=== PATIENT | male | born 1990 | race African-American/Black ===

== ENCOUNTER 2020-04-15 21:26 | Emergency (ER) | payer OTHER ==
[2020-04-15 21:31] VITALS: BP 129/65; PULSE 82; TEMP 99; BMI 26.5
[2020-04-15] MEDS ORDERED: AZITHROMYCIN 500 MG TABLET PO ONE (21:31)
--- NOTE | 2020-04-15 21:32 | PDOC ---
Rapid Medical Evaluation Time Seen by Provider: 04/15/20 21:29 Medical Evaluation: 04/15/20 21:30 Pt presents to the ER for STD testing Exam: Defer to provider Orders: urine Pt to proceed to the ER for evaluation Discharge Disposition - Diagnosis Concern about STD in male without diagnosis - Referrals - Patient Instructions - Post Discharge Activity
[2020-04-15] MEDS ORDERED: AZITHROMYCIN 250 MG TABLET ONE (21:54)
--- NOTE | 2020-04-15 22:01 | PDOC ---
History of Present Illness - General Chief Complaint: HIV Testing Stated Complaint: SICK Time Seen by Provider: 04/15/20 21:29 - History of Present Illness Initial Comments: 04/15/20 21:54 29-year-old male without comorbidities no allergies to medicine presents for STD testing he is asymptomatic. He states his girlfriend was positive for chlamydia. Past History - Medical History Allergies/Adverse Reactions: Allergies Allergy/AdvReac Type Severity Reaction Status Date / Time No Known Allergies Allergy Verified 04/15/20 21:31 COPD: No - Psycho-Social/Smoking History Smoking History: Never smoked - Substance Abuse Hx (Audit-C & DAST Scrn) How often the patient has a drink containing alcohol: Never Score: In Men: 4 or > Positive; In Women: 3 or > Positive: 0 Screen Result (Pos requires Nsg. Audit-10AR): Negative In the last yr the pt used illegal drug/Rx for NonMed reason: Yes Score: Yes response is considered Positive: 1 Screen Result (Positive result requires Nsg. DAST-10): Positive Review of Systems - Review of Systems Constitutional: No: Fever : No: Dysuria *Physical Exam - Vital Signs Last Vital Signs Temp Pulse Resp BP Pulse Ox 99.0 F 82 18 129/65 98 04/15/20 21:27 04/15/20 21:27 04/15/20 21:27 04/15/20 21:27 04/15/20 21:27 - Physical Exam General Appearance: Yes: Nourished, Appropriately Dressed HEENT: positive: Symmetrical Neck: positive: Supple Respiratory/Chest: positive: Normal Breath Sounds. negative: Respiratory Distress Musculoskeletal: positive: Normal Inspection Extremity: positive: Normal Inspection Integumentary: positive: Normal Color Neurologic: positive: medical record retrieval specialist II-XII NML intact Medical Decision Making - Medical Decision Making 04/15/20 21:55 I have reviewed the pathophysiology with the patient. They are in agreement with the treatment plan all questions were answered to their satisfaction. Understanding for follow-up without fail was also conveyed to the patient. Again they are in agreement. Discharge - Discharge Information Problems reviewed: Yes Clinical Impression/Diagnosis: Concern about STD in male without diagnosis Condition: Stable Disposition: HOME - Admission No - Follow up/Referral Referrals: Willy Gilliam MD [Staff Physician] - - Patient Discharge Instructions Additional Instructions: Return to the emergency room for further issues and without fail follow-up with your primary care physician in 1 to 2 days for further evaluation and treatment options. You were treated for gonorrhea and chlamydia tonight with injection and oral medication. HIV test as well as syphilis test are pending. We will call you with the results or you may call the emergency room back at [phone] in 2 to 3 days for test results. - Post Discharge Activity
[2020-04-15] MEDS ORDERED: ACETAMINOPHEN 500 MG TABLET (FP) PO ONE (22:15)
[2020-04-15] MEDS ORDERED: ACETAMINOPHEN 500 MG TABLET (FP) ONE (22:16)
== END 2020-04-15 22:28 | disposition home or self-care (01) ==
LOC: JERFT 21:26
DX: Z11.3 Encounter for screening for infections with a predominantly sexual mode of transmission (principal)
CPT/HCPCS: 36415; 87491; 87591; 96372; 99284-25

== ENCOUNTER 2020-07-16 06:52 | Emergency (ER) | payer OTHER ==
[2020-07-16 07:18] VITALS: BP 130/64; PULSE 72; TEMP 98.4; BMI 34.4
[2020-07-16] MEDS ORDERED: ACETAMINOPHEN 325 MG TABLET (FP) PO ONE (07:46)
[2020-07-16] MEDS ORDERED: IBUPROFEN 400 MG TABLET (FP) PO ONE ×2 (07:46→08:00)
[2020-07-16] MEDS ORDERED: ACETAMINOPHEN 500 MG TABLET (FP) ONE (08:00)
== END 2020-07-16 08:39 | disposition home or self-care (01) ==
LOC: JER 06:52
DX: M25.561 Pain in right knee (principal)
CPT/HCPCS: 73562-TC-RT-FY; 99284-25

== ENCOUNTER 2022-03-08 04:22 | Emergency (ER) | payer OTHER ==
[2022-03-08] MEDS ORDERED: BACITRACIN 15 GM TUBE TOPICAL OINTMENT TP ONE (04:26)
[2022-03-08] MEDS ORDERED: DIPHTH,PERTUSS(ACELL),TET 0.5 ML DISP.SYRIN IM ONE ×2 (04:26→04:30)
[2022-03-08] MEDS ORDERED: IBUPROFEN 600 MG TABLET (FP) PO ONE ×2 (04:27→04:29)
== END 2022-03-08 04:49 | disposition home or self-care (01) ==
LOC: FER 04:22
PROC: 3E0234Z Introduction of Serum, Toxoid and Vaccine into Muscle, Percutaneous Approach (ICD-10-PCS; principal; 2022-03-08)
DX: S70.311A Abrasion, right thigh, initial encounter (principal)
CPT/HCPCS: 90471; 90715; 99283-25